=== PATIENT | female | born 1955 | race Two or more races ===

== ENCOUNTER 2024-01-18 02:12 | Emergency (ER) | payer MEDICARE, MEDICAID ==
[~2024-01-18] VITALS: Ht 162.6 cm; Wt 65.9 kg
[~2024-01-18 02:12] MED LIST: ATOR40TA71 PO; LEVO88TA7 PO; OMEP20 PO; RISP2TAB45 PO; SODI100067 PO
[2024-01-18 04:44] LABS: BASOPHILS % (AUTO) 0.7 % (0.0-2.0); EOSINOPHILS % (AUTO) 1.7 % (1.0-6.0); HEMATOCRIT 34.1 % (36-46); HEMOGLOBIN 11.5 g/dL (12.0-16.0); LYMPHOCYTES # (AUTO) 1.8 K/uL (1.0-4.8); LYMPHOCYTES % (AUTO) 23.5 % (22.0-44.0); MEAN CORPUSCULAR HEMOGLOBIN 29.9 pg (26.0-34.0); MEAN CORPUSCULAR HGB CONC 33.7 G/dL (31.0-37.0); MEAN CORPUSCULAR VOLUME 89 fL (80-100); MONOCYTES # (AUTO) 0.6 K/uL (0.1-1.0); MONOCYTES % (AUTO) 7.9 % (2.0-9.0); NEUTROPHILS % (AUTO) 66.2 % (40.0-70.0); PLATELET COUNT (AUTO) 291 K/uL (150-450); RED BLOOD CELL COUNT(AUTO) 3.85 MIL/uL (4.00-5.20); RED CELL DISTRIBUTION WIDTH 14.5 % (11.5-14.5); WHITE BLOOD COUNT (AUTO) 7.6 K/uL (4.5-11.0)
[2024-01-18 04:55] LABS: CALCIUM, TOTAL 8.9 mg/dL (8.8-10.5); CREATININE 1.07 mg/dL (0.60-1.30); POTASSIUM 3.3 mmol/L (3.5-5.1)
[2024-01-18 05:00] LABS: TROPONIN I-HIGH SENSITIVITY 8 ng/L (<51)
[2024-01-18 05:02] LABS: ALBUMIN 3.1 g/dL (3.4-5.0); BILIRUBIN,TOTAL 0.4 mg/dL (0.1-1.0); TOTAL PROTEIN, SERUM 6.6 g/dL (6.4-8.2)
[2024-01-18] MEDS: POTASSIUM CHLORIDE 20 MEQ ER TABLET PO ONE (05:15)
[2024-01-18 06:04] VITALS: BP 120/69; PULSE 74; RESP 16; TEMP 98.3
== END 2024-01-18 06:21 | disposition home or self-care (01) ==
LOC: EMS 02:12
DX: R07.89 Other chest pain (principal); E87.6 Hypokalemia; E11.9 Type 2 diabetes mellitus without complications; I10 Essential (primary) hypertension; Z79.899 Other long term (current) drug therapy
CPT/HCPCS: 71045; 80053; 82550; 83880; 84484; 85025; 93005; 99285; 36415-L1; 36415-TC